=== PATIENT | male | born 1970 | race Caucasian/White ===

== ENCOUNTER 2016-04-11 00:54 | Emergency (ER) | payer OTHER ==
--- NOTE | 2016-04-11 03:16 | ED CLINICAL REPORT ---
Clinical Report - Physicians/Mid Levels [facility] [address] [place] [place] [address] 04/11/2016 0:58 Patient: JEREMY DE LA GARZA Time Seen: 01:39. Arrived- By private vehicle. Historian- patient. HISTORY OF PRESENT ILLNESS Chief Complaint: COUGH. This started about 1 1/2 weeks ago and is still present and now worse. The illness is described as moderate. The patient has had a cough. He has had moderate amounts of yellow sputum. No difficulty breathing, chest discomfort or pain, fever or muscle aches. No chills, sore throat, hoarseness, sinus pressure or sinus drainage. No ear pain. He has had nasal congestion (- improving--illness started with this). Additional history - No known contact with a sick individual. Similar symptoms previously: Occasionally. Recent medical care: Not recently seen/assessed. REVIEW OF SYSTEMS No headache, eye discomfort, nausea, vomiting or diarrhea. No abdominal pain, hay fever, pedal edema, calf pain or difficulty with urination. No skin rash, enlarged lymph nodes or joint pain. All systems otherwise negative, except as recorded above. PAST HISTORY Problems: Depression. Additional Surgeries: Appendectomy. Medications: Sertraline HCl Oral 100 mg, daily. Allergies: No Known Drug Allergy. SOCIAL HISTORY Never smoker. Occasional alcohol use. History of drug use: marijuana. ADDITIONAL NOTES The nursing notes have been reviewed. PHYSICAL EXAM Vital Signs: 04/11/2016 01:08 BP: 148/97. HR: 99. RR: 16. O2 saturation: 96%. Temp: 98.7 F. Pain level now: 0/10. Have been reviewed. Appearance: Alert. No acute distress. Eyes: Pupils equal, round and reactive to light. Eyes normal inspection. ENT: Nose normal. Neck: Normal inspection. Neck supple. CVS: Normal heart rate and rhythm. Heart sounds normal. Pulses normal. Respiratory: No respiratory distress. Breath sounds normal. Abdomen: Soft and nontender. Back: Normal inspection. No CVA tenderness. Skin: Skin warm and dry. Normal skin color. No rash. Normal skin turgor. Extremities: Extremities exhibit normal ROM. No lower extremity edema. Neuro: Oriented X 3. No motor deficit. No sensory deficit. LABS, X-RAYS, AND EKG Chest X-ray: No acute disease. Normal lung markings present. Normal heart size. Mediastinum normal. Great vessels normal. Soft tissues normal. No infiltrate. No fracture. No bony lesion present. Views: PA and lateral. Technique: good. The X-rays were independently viewed by me and interpreted contemporaneously by me. Prior films were not available for comparison. Pulse Oximetry: 04/11/2016 01:08 O2 saturation: 96%. (FIO2 - room air). Interpretation: normal. PROGRESS AND PROCEDURES Course of Care: PT was treated with Zithromax for bronchitis. CXR showed no pneumonia. Patient counseled in person regarding the patient's stable condition, test results, diagnosis and need for follow-up. Concerns were addressed. Old medical records reviewed. Disposition: Discharged. Condition: stable and improved. CLINICAL IMPRESSION Acute bacterial bronchitis. Possible acute viral (presumed) rhinitis. INSTRUCTIONS Drink plenty of fluids. (Your x-rays look good--no pneumonia.). Warnings: GENERAL WARNINGS: Return or contact your physician immediately if your condition worsens or changes unexpectedly, if not improving as expected, or if other problems arise. Your Current Medications: CONTINUE TAKING THE FOLLOWING MEDICATIONS: Sertraline HCl Oral : 100 mg daily. Prescription Medications: Zithromax Z-Clemente: Take according to package instructions 2 orally today, followed by 1 orally every day for the next 4 days. Total course 5 days. No refills. Substitution is permissible. Follow-up: Follow up with your doctor in seven days if not better. Understanding of the discharge instructions verbalized by patient. (Electronically signed by Sujatha Pruitt MD 04/11/2016 17:24)
--- NOTE | 2016-04-11 03:16 | ED NURSING NOTES ---
Clinical Report - Nurses [facility] [address] [place] [address] 04/11/2016 0:58 Patient: JEREMY DE LA GARZA TRIAGE Triage time 01:09. Acuity: LEVEL 4. Chief Complaint: COUGH. 01:12. Alert. SEPSIS SCREEN: Sepsis Screen. Negative (no infection suspected/documented). KARYN COMA SCORE: [place] Coma Scale: 15- eyes open spontaneously (4); best verbal response- oriented x 4 (5); best motor response- obeys commands (6). --01:12 Anatoly Vaughn R.N. 01:08 04/11/16. BP: 148/97. HR: 99. RR: 16. O2 saturation: 96% on room air. Temp: 98.7 F. Pain level now: 0/10. --01:12 Anatoly Vaughn R.N. Weight: 81.6 kg stated. Height/Length: 68 inches Per Patient. BMI: 27.4. --01:11 Anatoly Vaughn R.N. Medications Sertraline HCl Oral 100 mg, daily. --01:13 Anatoly Vaughn R.N. The following entry was struck by Anatoly Vaughn R.N., 01:13 (04/11/16) Reason - other. <<STRICKEN ENTRY-- None. --01:10 Anatoly Vaughn R.N. --END STRIKE>>. Medication/allergy information source: the patient. --01:12 Anatoly Vaughn R.N. Allergies No Known Drug Allergy. --01:10 Anatoly Vaughn R.N. History Arrived by private vehicle. Historian: patient. Accompanied by friend. Primary physician (Zaheer). Onset. (3 days ago). 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 PAST MEDICAL HX: Immunizations: up-to-date. SOCIAL HX: Never smoker. Occasional alcohol use. History of occasional drug use: marijuana. No infectious disease exposure. ABUSE ASSESSMENT: No report of abuse. FALL RISK ASSESSMENT: Fall risk assessment completed. No fall risk identified. NUTRITIONAL RISK ASSESSMENT: The nutritional risk assessment revealed no deficiencies. FUNCTIONAL ASSESSMENT: Functional assessment: no impairments noted. LEARNING NEEDS ASSESSMENT: The learning needs assessment revealed no barriers. SKIN INTEGRITY ASSESSMENT: Skin integrity risk assessment completed. No skin integrity risk identified. --01:12 Anatoly Vaughn R.N. ( Patient reports that he quit taking Sertraline 3 days ago). --01:14 Anatoly Vaughn R.N. PROBLEMS: Depression. --01:10 Anatoly Vaughn R.N. ADDITIONAL SURGERIES: Appendectomy. --01:10 Anatoly Vaughn R.N. Interventions ID band on patient. To treatment room. --01:12 Anatoly Vaughn R.N. PHYSICAL ASSESSMENT 01:12. Ambulatory to room. GENERAL / NEURO / PSYCH: Alert. Oriented X 4. HEENT: No facial asymmetry noted. Mucous membranes are pink. RESPIRATORY: Respirations not labored. SKIN: Skin intact. Skin is warm and dry. Normal skin turgor. --01:12 Anatoly Vaughn R.N. NURSING PROGRESS NOTES 01:12. Head of bed elevated. Two patient identifiers checked. Call light placed in reach. Bed placed in lowest position. Brakes of bed on. Patient ready for evaluation- chart flagged. --01:12 Anatoly Vaughn R.N. 02:40. Patient walked to radiology with tech. --03:02 Anatoly Vaughn R.N. 02:46. Patient walked back to ED from radiology with tech. --03:02 Anatoly Vaughn R.N. 03:29 04/11/2016 Zithromax PO 500 mg given. Allergies verified and confirmed 5 rights. --03:34 Anatoly Vaughn R.N. 03:33. The patient is calm and resting quietly. RESPIRATORY: No respiratory distress. SKIN: Skin is warm and dry. Skin color within normal limits. --03:36 Anatoly Vaughn R.N. DISPOSITION / DISCHARGE Departure time: 03:36. Condition at departure: stable. No learning barriers present. Discharge instructions provided and reviewed with the patient. Reviewed medication(s) side effects, precautions, dosing and course information. Prescription(s) given to the patient. Patient verbalized understanding. Written instructions provided in Beninese. The patient was discharged home and accompanied by homogenizer operator. He left the Emergency Department ambulatory and via private vehicle. Print Line Operator driving. FALL RISK ASSESSMENT: Fall risk assessment completed. No fall risk identified. --03:36 Anatoly Vaughn R.N. 03:35 04/11/16. BP: 136/89. HR: 94. RR: 16. O2 saturation: 96% on room air. Pain level now: 03/19. --03:36 Anatoly Vaughn R.N. Locked/Released at 04/11/2016 3:37 by Anatoly Vuaghn R.N.
--- NOTE | 2016-04-11 03:16 | ED NURSING NOTES ---
Clinical Report - Nurses [facility] [address] [place] [address] 04/11/2016 0:58 Patient: JEREMY DE LA GARZA TRIAGE Triage time 01:09. Acuity: LEVEL 4. Chief Complaint: COUGH. 01:12. Alert. SEPSIS SCREEN: Sepsis Screen. Negative (no infection suspected/documented). KARYN COMA SCORE: Somis Coma Scale: 15- eyes open spontaneously (4); best verbal response- oriented x 4 (5); best motor response- obeys commands (6). --01:12 Anatoly Vaughn R.N. 01:08 04/11/16. BP: 148/97. HR: 99. RR: 16. O2 saturation: 96% on room air. Temp: 98.7 F. Pain level now: 0/10. --01:12 Anatoly Vaughn R.N. Weight: 81.6 kg stated. Height/Length: 68 inches Per Patient. BMI: 27.4. --01:11 Anatoly Vaughn R.N. Medications Sertraline HCl Oral 100 mg, daily. --01:13 Anatoly Vaughn R.N. The following entry was struck by Anatoly Vaughn R.N., 01:13 (04/11/16) Reason - other. <<STRICKEN ENTRY-- None. --01:10 Anatoly Vaughn R.N. --END STRIKE>>. Medication/allergy information source: the patient. --01:12 Anatoly Vaughn R.N. Allergies No Known Drug Allergy. --01:10 Anatoly Vaughn R.N. History Arrived by private vehicle. Historian: patient. Accompanied by friend. Primary physician (Zaheer). Onset. (3 days ago). 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 PAST MEDICAL HX: Immunizations: up-to-date. SOCIAL HX: Never smoker. Occasional alcohol use. History of occasional drug use: marijuana. No infectious disease exposure. ABUSE ASSESSMENT: No report of abuse. FALL RISK ASSESSMENT: Fall risk assessment completed. No fall risk identified. NUTRITIONAL RISK ASSESSMENT: The nutritional risk assessment revealed no deficiencies. FUNCTIONAL ASSESSMENT: Functional assessment: no impairments noted. LEARNING NEEDS ASSESSMENT: The learning needs assessment revealed no barriers. SKIN INTEGRITY ASSESSMENT: Skin integrity risk assessment completed. No skin integrity risk identified. --01:12 Anatoly Vaughn R.N. ( Patient reports that he quit taking Sertraline 3 days ago). --01:14 Anatoly Vaughn R.N. PROBLEMS: Depression. --01:10 Anatoly Vaughn R.N. ADDITIONAL SURGERIES: Appendectomy. --01:10 Anatoly Vaughn R.N. Interventions ID band on patient. To treatment room. --01:12 Anatoly Vaughn R.N. PHYSICAL ASSESSMENT 01:12. Ambulatory to room. GENERAL / NEURO / PSYCH: Alert. Oriented X 4. HEENT: No facial asymmetry noted. Mucous membranes are pink. RESPIRATORY: Respirations not labored. SKIN: Skin intact. Skin is warm and dry. Normal skin turgor. --01:12 Anatoly Vaughn R.N. NURSING PROGRESS NOTES 01:12. Head of bed elevated. Two patient identifiers checked. Call light placed in reach. Bed placed in lowest position. Brakes of bed on. Patient ready for evaluation- chart flagged. --01:12 Anatoly Vaughn R.N. 02:40. Patient walked to radiology with tech. --03:02 Anatoly Vaughn R.N. 02:46. Patient walked back to ED from radiology with tech. --03:02 Anatoly Vaughn R.N. 03:29 04/11/2016 Zithromax PO 500 mg given. Allergies verified and confirmed 5 rights. --03:34 Anatoly Vaughn R.N. 03:33. The patient is calm and resting quietly. RESPIRATORY: No respiratory distress. SKIN: Skin is warm and dry. Skin color within normal limits. --03:36 Anatoly Vaughn R.N. DISPOSITION / DISCHARGE Departure time: 03:36. Condition at departure: stable. No learning barriers present. Discharge instructions provided and reviewed with the patient. Reviewed medication(s) side effects, precautions, dosing and course information. Prescription(s) given to the patient. Patient verbalized understanding. Written instructions provided in Tanzanian. The patient was discharged home and accompanied by health advocate. He left the Emergency Department ambulatory and via private vehicle. Hospice Liaison driving. FALL RISK ASSESSMENT: Fall risk assessment completed. No fall risk identified. --03:36 Anatoly Vaughn R.N. 03:35 04/11/16. BP: 136/89. HR: 94. RR: 16. O2 saturation: 96% on room air. Pain level now: 03/19. --03:36 Anatoly Vaughn R.N. Locked/Released at 04/11/2016 3:37 by Anatoly Vaughn R.N.
--- NOTE | 2016-04-11 03:16 | ED ORDER SUMMARY ---
..... Patient: JEREMY DE LA GARZA OrderSheet [facility] VisitID: [id number] [address] [place] [address] 45y, M Registration Date/Time: 04/11/2016 ORDER SHEET Weight: 81.6 kg (stated) Allergies: No Known Drug Allergy GENERAL ORDERS: Chest 2V Urgent (02:37 04/11/2016 Danitza ATWOOD) (Ack 2:38 [facility] ER Combination Man) (2:46 RFay) MEDICATION ORDERS: Zithromax PO 500 mg (NOW) (03:15 04/11/2016 Danitza ATWOOD) (Ack 3:28 JQuivey R.N.) (3:34 JQuivey R.N.) IV FLUIDS: ORDER SHEET NOTES: [Electronically signed by Anatoly Vaughn R.N. (03:37 04/11/2016)] [Electronically signed by Sujatha Pruitt MD (17:24 04/11/2016)] [Electronically locked/signed by Anatoly Vaughn R.N. (03:37 04/11/2016)]
--- NOTE | 2016-04-11 03:16 | ED ORDER SUMMARY ---
..... Patient: JEREMY DE LA GARZA OrderSheet [facility] VisitID: [id number] [address] [place] [address] 45y, M Registration Date/Time: 04/11/2016 ORDER SHEET Weight: 81.6 kg (stated) Allergies: No Known Drug Allergy GENERAL ORDERS: Chest 2V Urgent (02:37 04/11/2016 Danitza ATWOOD) (Ack 2:38 [facility] ER Cad Designer) (2:46 RFay) MEDICATION ORDERS: Zithromax PO 500 mg (NOW) (03:15 04/11/2016 Danitza ATWOOD) (Ack 3:28 JQuivey R.N.) (3:34 JQuivey R.N.) IV FLUIDS: ORDER SHEET NOTES: [Electronically signed by Anatoly Vaughn R.N. (03:37 04/11/2016)] [Electronically signed by Sujatha Pruitt MD (17:24 04/11/2016)] [Electronically locked/signed by Anatoly Vaughn R.N. (03:37 04/11/2016)]
--- NOTE | 2016-04-11 08:49 | DIAGNOSTIC IMAGING REPORT ---
PROCEDURE: XR CHEST 2 VIEW INDICATION: COUGH TECHNIQUE: Two views. COMPARISON: None. FINDINGS: The cardiomediastinal contour and central vasculature are within normal limits. Asymmetric elevation of the right hemidiaphragm. The lungs are clear without focal consolidation, pleural effusion, or pneumothorax. The visualized osseous structures are intact. IMPRESSION: 1. No acute process.
--- NOTE | 2016-04-11 17:24 | ED MAR SUMMARY ---
..... Medication Administration Record [facility] [address] [place] [address] Patient: JEREMY DE LA GARZA Visit ID: [id number] 45y, M Weight: 81.6 kg Height/Length: 68 in BMI: 27.4 ALLERGIES: No Known Drug Allergy Given 03:29 04/11/2016 Anatoly Vaughn R.NVani Medication Administered: ZITHROMAX [PO], Dose: 500 mg PO. Medication Ordered: Zithromax PO 500 mg (NOW).
--- NOTE | 2016-04-11 17:24 | ED MED RECONCILIATION SUMMARY ---
Patient: JEREMY DE LA GARZA Medication Reconciliation Report [facility] VisitID: [id number] [address] [place] [address] 45y, M Registration Date/Time: 04/11/2016 Weight: 81.6 kg Height/Length: 68 in. BMI: 27.4 ALLERGIES: No Known Drug Allergy The patient's Home Medications are listed below: CONTINUE TAKING THE FOLLOWING MEDICATIONS: Sertraline HCl Oral 100 mg, daily The source(s) of the original Home Medication information: patient The following Medications were given to the patient in the Emergency Department: Zithromax [PO] PO 500 mg, administered: 04/11/2016 3:29:00 AM The following Medications were prescribed to the patient: Zithromax Z-Clemente: Take according to package instructions 2 orally today, followed by 1 orally every day for the next 4 days. Total course 5 days. No refills. Substitution is permissible. -- Sujatha Pruitt MD
--- NOTE | 2016-04-11 17:24 | ED MED RECONCILIATION SUMMARY ---
Patient: JEREMY DE LA GARZA Medication Reconciliation Report [facility] VisitID: [id number] [address] [place] [address] 45y, M Registration Date/Time: 04/11/2016 Weight: 81.6 kg Height/Length: 68 in. BMI: 27.4 ALLERGIES: No Known Drug Allergy The patient's Home Medications are listed below: CONTINUE TAKING THE FOLLOWING MEDICATIONS: Sertraline HCl Oral 100 mg, daily The source(s) of the original Home Medication information: patient The following Medications were given to the patient in the Emergency Department: Zithromax [PO] PO 500 mg, administered: 04/11/2016 3:29:00 AM The following Medications were prescribed to the patient: Zithromax Z-Clemente: Take according to package instructions 2 orally today, followed by 1 orally every day for the next 4 days. Total course 5 days. No refills. Substitution is permissible. -- Sujatha Pruitt MD
--- NOTE | 2016-04-11 17:24 | ED DISCHARGE INSTRUCTIONS ---
Patient: JEREMY DE LA GARZA General Instructions [facility] VisitID: [id number] [place] [address] 45y, M Registration Date/Time: 04/11/2016 Acute bacterial bronchitis. INSTRUCTIONS Drink plenty of fluids. (Your x-rays look good--no pneumonia.). Warnings: GENERAL WARNINGS: Return or contact your physician immediately if your condition worsens or changes unexpectedly, if not improving as expected, or if other problems arise. Your Current Medications: CONTINUE TAKING THE FOLLOWING MEDICATIONS: Sertraline HCl Oral : 100 mg daily. Prescription Medications: Zithromax Z-Clemente: Take according to package instructions 2 orally today, followed by 1 orally every day for the next 4 days. Total course 5 days. No refills. Substitution is permissible. Follow-up: Follow up with your doctor in seven days if not better. Understanding of the discharge instructions verbalized by patient. ADDITIONAL INFORMATION Viral Respiratory Illness [Adult] You have an Upper Respiratory Illness (URI) caused by a virus. This illness is contagious during the first few days. It is spread through the air by coughing and sneezing or by direct contact (touching the sick person and then touching your own eyes, nose or mouth). Most viral illnesses go away within 7-10 days with rest and simple home remedies. Sometimes, the illness may last for several weeks. Antibiotics will not kill a virus and are generally not prescribed for this condition. Home Care: 1) If symptoms are severe, rest at home for the first 2-3 days. When you resume activity, don't let yourself get too tired. 2) Avoid being exposed to cigarette smoke (yours or others). 3) Tylenol (acetaminophen) or ibuprofen (Advil, Motrin) will help fever, muscle aching and headache. (Persons under 18 with fever should not take aspirin since this may cause liver damage.) 4) Your appetite may be poor, so a light diet is fine. Avoid dehydration by drinking 6-8 glasses of fluids per day (water, soft drinks, juices, tea, soup). Extra fluids will help loosen secretions in the nose and lungs. 5) Bhyj-fqa-tfnjvyr cold medicines will not shorten the length of time youre sick, but they may be helpful for the following symptoms: cough (Robitussin DM); sore throat (Chloraseptic lozenges or spray); nasal and sinus congestion (Actifed, Sudafed, Chlortrimeton). Follow Up with your doctor or as advised if you dont improve over the next week. Get Prompt Medical Attention if any of the following occur: -- Cough with lots of colored sputum (mucus) or blood in your sputum -- Chest pain, shortness of breath, wheezing or have trouble breathing -- Severe headache; face, neck or ear pain -- Fever over 100.4 F (38.0 C) for more than three days -- You cant swallow due to throat pain Bronchitis (Adult: Abx Tx) BRONCHITIS is an infection of the air passages (bronchial tubes). It often occurs during the common cold. Symptoms include cough with mucus (phlegm) and low-grade fever. Bronchitis usually lasts 7-14 days. Mild cases can be treated with simple home remedies. More severe infection is treated with an antibiotic. Home Care: If symptoms are severe, rest at home for the first 2-3 days. When you resume activity, don't let yourself get too tired. Do not smoke. Avoid being exposed to the smoke of others. You may use acetaminophen (Tylenol) or ibuprofen (Motrin, Advil) to control fever or pain, unless another medicine was prescribed for this. [NOTE: If you have chronic liver or kidney disease or ever had a stomach ulcer or GI bleeding, talk with your doctor before using these medicines.] Your appetite may be poor, so a light diet is fine. Avoid dehydration by drinking 6-8 glasses of fluids per day (water, soft, drinks, juices, tea, soup, etc.). Extra fluids will help loosen secretions in the lungs. Bijf-jcj-velytzz cough medicines that containdextromethorphan(such as Robitussin DM) and decongestants (Actifed or Sudafed) may help relieve cough and congestion. [NOTE: Do not use decongestants if you have high blood pressure.] Finish all antibiotic medicine, even if you are feeling better after only a few days. Follow Up with your doctor or as directed if you dont start to feel better after three days. [NOTE: If you are age 65 or older, or if you have chronic asthma or COPD, we recommend a PNEUMOCOCCAL VACCINATION every five years and a yearly INFLUENZAVACCINATION (FLU-SHOT) every . Ask your doctor about this. If you had an X-ray, a radiologist will review it. You will be notified of any new findings that may affect your care.] Get Prompt Medical Attention if any of the following occur: Fever over 100.4F (38.0C) for more than three days Trouble breathing, wheezing or pain with breathing Coughing up blood or increased amounts of colored sputum Weakness, drowsiness, headache, facial pain, ear pain or a stiff neck You have been given the following additional information: Uri, Viral, No Abx (Adult) Bronchitis, Antiobiotic Treatment (Adult) (Electronically signed by Sujatha Pruitt MD 04/11/2016 17:24)
--- NOTE | 2016-04-11 17:24 | ED MAR SUMMARY ---
..... Medication Administration Record [facility] [address] [place] [address] Patient: JEREMY DE LA GARZA Visit ID: [id number] 45y, M Weight: 81.6 kg Height/Length: 68 in BMI: 27.4 ALLERGIES: No Known Drug Allergy Given 03:29 04/11/2016 Anatoly Vaughn R.NVani Medication Administered: ZITHROMAX [PO], Dose: 500 mg PO. Medication Ordered: Zithromax PO 500 mg (NOW).
== END 2016-04-11 03:34 | disposition home or self-care (01) ==
LOC: ED SRH 00:54
DX: J20.8 Acute bronchitis due to other specified organisms (principal); B96.89 Other specified bacterial agents as the cause of diseases classified elsewhere